=== PATIENT | male | born 1995 | race Caucasian/White ===

== ENCOUNTER 2021-04-18 01:23 | Emergency (ER) | payer SELFPAY ==
[~2021-04-18] VITALS: Ht 175.3 cm; Wt 68.0 kg
[2021-04-18 03:13] LABS: Influenza A, PCR NEGATIVE (NEGATIVE); Influenza B, PCR NEGATIVE (NEGATIVE); Resp Syncytial Virus, PCR NEGATIVE (NEGATIVE); SARS-Cov-2 (COVID-19) PCR, MMC NEGATIVE (NEGATIVE)
[2021-04-18] MEDS ORDERED: ONDA4ODT MM (03:39)
== END 2021-04-18 03:51 | disposition home or self-care (01) ==
LOC: ER 01:23
PROVIDERS: Student in an Organized Health Care Education/Training Program
DX: B34.9 Viral infection, unspecified (principal); Z20.822 Contact with and (suspected) exposure to COVID-19
CPT/HCPCS: 0241U; 96374; 96375; 99284-25; A9270; J1885; J2405